=== PATIENT | female | born 1980 | race Caucasian/White ===

== ENCOUNTER 2016-12-25 21:07 | Emergency (ER) | payer BC ==
[~2016-12-25] VITALS: Ht 154.9 cm; Wt 83.9 kg
[~2016-12-25 21:07] MED LIST: ARIP2TAB PO; BACL-19 PO; CETI10CA PO; FLUO40CA9 PO; MULT-658 PO; ONDA4TAB10 PO; PREG50CA PO; PREG75CA PO; VITA1CAP PO; ZERTEC; [UNRECOGNIZED DRUG - OTHER] PO
[2016-12-25] MEDS ORDERED: DIPHENHYDRAMINE 50 MG/ML, 1ML IVPush ONE (22:00)
[2016-12-25] MEDS ORDERED: PROCHLORPERAZINE 5 MG/ML, 2ML IVPush ONE (22:00)
[2016-12-25] MEDS ORDERED: KETOROLAC 30 MG/1 ML IVPush ONE (22:00)
[2016-12-25] MEDS ORDERED: SODIUM CHLORIDE 0.9% 1,000ML IVBOLUS ONE (22:00)
[2016-12-25] MEDS ORDERED: DIPHENHYDRAMINE 50 MG/ML, 1ML ONE (22:31)
[2016-12-25] MEDS ORDERED: KETOROLAC 30 MG/1 ML ONE (22:31)
[2016-12-25] MEDS ORDERED: PROCHLORPERAZINE 5 MG/ML, 2ML ONE (22:31)
[2016-12-25 23:37] VITALS: BP 102/56
== END 2016-12-26 00:49 | disposition home or self-care (01) ==
LOC: ED 22:03
DX: G43.109 Migraine with aura, not intractable, without status migrainosus (principal); Z91.040 Latex allergy status; Z88.1 Allergy status to other antibiotic agents; Z87.891 Personal history of nicotine dependence
CPT/HCPCS: 96360; 99284; J7030

== ENCOUNTER 2016-12-28 07:03 | Emergency (ER) | payer BC ==
[~2016-12-28] VITALS: Ht 154.9 cm; Wt 84.2 kg
[2016-12-28] MEDS ORDERED: METO10TA82 PO (07:29)
[2016-12-28] MEDS ORDERED: BUTA1CAP57 PO (07:29)
[2016-12-28] MEDS ORDERED: MONT10TA6 PO (07:29)
[2016-12-28] MEDS ORDERED: OXYC-229 PO (07:29)
[2016-12-28] MEDS ORDERED: TOPI50TA77 PO (07:29)
[2016-12-28] MEDS ORDERED: ONDA4TAB10 PO (07:29)
[2016-12-28] MEDS ORDERED: METHOCARBAMOL 750 MG TABLET ONE (07:39)
[2016-12-28] MEDS ORDERED: KETOROLAC 30 MG/1 ML ONE (07:39)
[2016-12-28] MEDS ORDERED: PROCHLORPERAZINE 5 MG/ML, 2ML ONE (07:39)
[2016-12-28] MEDS ORDERED: DEXAMETHASONE 4 MG TABLET ONE (07:39)
[2016-12-28] MEDS ORDERED: DIPHENHYDRAMINE 50 MG/ML, 1ML ONE (07:39)
[2016-12-28] MEDS ORDERED: SODIUM CHLORIDE 0.9% 1,000ML IVBOLUS ONE (08:00)
[2016-12-28] MEDS ORDERED: PROCHLORPERAZINE 5 MG/ML, 2ML IVPush ONE (08:00)
[2016-12-28] MEDS ORDERED: SODIUM CHLORIDE FLUSH 10ML SYR IVF ONE (08:00)
[2016-12-28] MEDS ORDERED: DEXAMETHASONE 4 MG/ML, 1ML IVPush ONE (08:00)
[2016-12-28] MEDS ORDERED: DIPHENHYDRAMINE 50 MG/ML, 1ML IVPush ONE (08:00)
[2016-12-28] MEDS ORDERED: KETOROLAC 30 MG/1 ML IVPush ONE (08:00)
[2016-12-28] MEDS ORDERED: METHOCARBAMOL 750 MG TABLET PO ONE (08:00)
[2016-12-28] MEDS ORDERED: DEXAMETHASONE 4 MG TABLET PO ONE (08:30)
[2016-12-28 10:25] VITALS: BP 108/68
== END 2016-12-28 10:28 | disposition home or self-care (01) ==
LOC: ED 09:02
DX: G43.901 Migraine, unspecified, not intractable, with status migrainosus (principal); J45.909 Unspecified asthma, uncomplicated; Z87.891 Personal history of nicotine dependence
CPT/HCPCS: 93005; 99283